=== PATIENT | male | born 1995 | race Caucasian/White ===

== ENCOUNTER 2022-02-23 01:22 | Emergency (ER) | payer SELFPAY ==
[~2022-02-23] VITALS: Ht 182.9 cm; Wt 97.7 kg
[2022-02-23 01:38] VITALS: TEMP 99.3
[2022-02-23] MEDS ORDERED: AMOXICILLIN 8751 TAB PO (03:13)
[2022-02-23 03:50] VITALS: BP 123/81; PULSE 58
== END 2022-02-23 03:50 | disposition home or self-care (01) ==
LOC: COL.ER → EDBD 01:22 → COL.ER 03:50
DX: S92.211A Displaced fracture of cuboid bone of right foot, initial encounter for closed fracture (principal); S81.851A Open bite, right lower leg, initial encounter; S71.152A Open bite, left thigh, initial encounter; F17.290 Nicotine dependence, other tobacco product, uncomplicated; Z88.1 Allergy status to other antibiotic agents; Z28.310 Unvaccinated for COVID-19; W54.0XXA Bitten by dog, initial encounter
CPT/HCPCS: J1790; J2270